=== PATIENT | male | born 1980 | race Asian ===

== ENCOUNTER 2020-02-04 23:36 | Emergency (ER) | payer OTHER ==
[2020-02-05 00:04] VITALS: BP 132/93; PULSE 78; TEMP 97.7; BMI 23.6
[2020-02-05] MEDS ORDERED: IBUPROFEN 600 MG TABLET (FP) PO ONE (00:31)
[2020-02-05 01:01] LABS: HEMATOCRIT 43.8 % (35.4-49); HEMOGLOBIN 14.4 GM/dL (11.7-16.9); MCH 30.4 pg (25.7-33.7); MCHC 32.9 g/dl (32.0-35.9); MEAN CELL VOLUME 92.3 fl (80-96); MEAN PLT VOLUME 8.7 fl (7.5-11.1); PLATELET COUNT 207 K/MM3 (134-434); RBC 4.74 M/mm3 (4.00-5.60); RDW 13.4 % (11.9-15.9); WHITE BLOOD COUNT 7.2 K/mm3 (4.0-10.0)
[2020-02-05 02:09] LABS: ANISOCYTOSIS 0; HELMET CELLS 0; HOWELL-JOLLY BODIES 0; MACROCYTOSIS 0; OVALOCYTE 0; PLATELET ESTIMATE NORMAL; ROULEAU 0; SICKELED CELLS 0; TARGET CELLS 0; TEAR DROP CELLS 0; TOXIC GRANULATION 0
[2020-02-05 02:16] LABS: ERYTHROCYTE SEDIMENTATION RATE 2 mm/hr (0-10)
== END 2020-02-05 02:19 | disposition home or self-care (01) ==
LOC: JER 23:36
DX: M70.21 Olecranon bursitis, right elbow (principal)
CPT/HCPCS: 36415; 73070-TC-RT-FY; 85025; 85651; 86140; 99284-25